=== PATIENT | female | born 1960 | race Asian ===

== ENCOUNTER → 2018-10-03 | Outpatient (CLI) | payer OTHER | LOC: BMCIMAGING 10:08 | PROVIDERS: ATTEND Internal Medicine | DX: R05 Cough (principal) ==

== ENCOUNTER → 2018-10-08 | Outpatient (CLI) | payer OTHER ==
[~2018-10-08] MED LIST: IOHEXOL 350mgI/ML (OMNIPAQUE) 150 ML BTL IV ONE
== END ==
LOC: FIMAGING 17:11
PROVIDERS: ATTEND Internal Medicine Pulmonary Disease
DX: R05 Cough (principal); R93.89 Abnormal findings on diagnostic imaging of other specified body structures; R06.09 Other forms of dyspnea; R07.81 Pleurodynia; I26.99 Other pulmonary embolism without acute cor pulmonale
CPT/HCPCS: Q9967